=== PATIENT | female | born 2000 | race Caucasian/White ===

== ENCOUNTER 2020-09-03 20:26 | Emergency (ER) | payer OTHER ==
[2020-09-03 21:33] LABS: HEMOGLOBIN 14.2 gm/dl (12.3-15.3); RED BLOOD COUNT 5.3 M/UL (4.00-5.10); WHITE BLOOD COUNT 10.8 K/UL (4.5-11.0)
[2020-09-03 21:48] LABS: BUN/CREATININE RATIO 9 (0-10)
[2020-09-04] MEDS ORDERED: PHENERGAN 12.12.5 M1 PO (01:03)
[2020-09-04] MEDS ORDERED: BENTYL 20MG TAB20 MG PO (01:03)
== END 2020-09-04 01:29 | disposition home or self-care (01) ==
LOC: ER1 20:26
PROVIDERS: Emergency Medicine
DX: R10.9 Unspecified abdominal pain (principal); R11.2 Nausea with vomiting, unspecified; R19.7 Diarrhea, unspecified; Z88.8 Allergy status to other drugs, medicaments and biological substances
CPT/HCPCS: 36415; 80053; 81001; 83690; 84703; 85025; 96372; 99284; J2550; Q9967

== ENCOUNTER 2022-02-26 20:14 | Emergency (ER) | payer OTHER ==
[~2022-02-26 20:14] MED LIST: BENTYL 20MG TAB20 MG PO; PHENERGAN 12.12.5 M1 PO
== END 2022-02-26 21:24 | disposition left against medical advice (07) ==
LOC: ER1 20:14
DX: Z53.21 Procedure and treatment not carried out due to patient leaving prior to being seen by health care provider (principal)